=== PATIENT | male | born 1965 | race Caucasian/White ===

== ENCOUNTER 2016-12-02 23:15 | Emergency (ER) | payer OTHER ==
[2016-12-02 23:28] LABS: BASOPHIL# 0.1 X 10^3uL (0.0-0.1); BASOPHILS 0.7 % (0.0-2.0); EOSINOPHILS 2.6 % (0.0-6.0); EOSINOPHILS# 0.4 X 10^3uL (0.0-0.4); HEMATOCRIT 45.8 % (42.0-54.0); LYMPHOCYTES 42.2 % (20.0-40.0); LYMPHOCYTES# 6.8 X 10^3uL (0.8-3.8); MEAN CELL VOLUME 83.7 fL (80.0-100.0); MEAN CORPUS. HGB CONCENTRATION 34.9 g/dL (32.0-36.0); MEAN CORPUSCULAR HEMOGLOBIN 29.2 pg (29.0-35.0); MEAN PLATELET VOLUME 8.3 fL (7.4-10.4); MONOCYTES 9.5 % (2.0-10.0); MONOCYTES# 1.5 X 10^3uL (0.2-1.0); NEUTROPHILS# 7.4 X 10^3uL (2.6-6.7); PLATELET COUNT 489 X 10^3uL (130-440); RED BLOOD COUNT 5.47 X 10^6uL (4.20-6.10); RED CELL DISTRIBUTION WIDTH 12.6 % (11.5-14.5); WHITE BLOOD COUNT 16.2 X 10^3uL (3.9-10.7)
[2016-12-02 23:37] LABS: ALBUMIN 4.5 g/dL (3.5-5.0); ALKALINE PHOSPHATASE 67 U/L (38-126); ALT 39 U/L (21-72); AST 23 U/L (17-59); BILIRUBIN, DIRECT 0.1 mg/dL (0.0-0.4); BILIRUBIN, TOTAL 0.5 mg/dL (0.2-1.3); BLOOD UREA NITROGEN 19 mg/dL (9-20); CALCIUM 9.1 mg/dL (8.4-10.2); CHLORIDE 105 mmol/L (98-107); EST GLOMERULAR FILTRATION RATE > 60 mL/min; ETHYL ALCOHOL 282 mg/dL (<10); GLUCOSE 128 mg/dL (70-100); LIPASE 77 U/L (23-300); MAGNESIUM 2.5 mg/dL (1.6-2.3); POTASSIUM 3.7 mmol/L (3.5-5.1); SODIUM 148 mmol/L (137-145); TOTAL PROTEIN 7.8 g/dL (6.3-8.2)
--- NOTE | 2016-12-03 00:04 | CT REPORT ---
HISTORY: Fall, EtOH. COMPARISON: None. TECHNIQUE: Axial non-contrast images obtained from skull vertex through foramen magnum. Dose reduction technique was utilized. FINDINGS: There is no atrophy. There is no hemorrhage. There is no hydrocephalus. No mass lesion is identifi ed. Agee white differentiation adequate, there is no infarction. No midline shift is identified. T he paranasal sinuses are clear. There is a superficial soft tissue hematoma over the left parietal re gion near the vertex. IMPRESSION: 1. No CT evidence of acute intracranial abnormalities. 2. Superficial soft tissue hematoma over the left parietal region near the vertex. Final Electronic Signature: This report was electronically signed by Robert Kitchen MD on 7 12:02 AM. jannette /
--- NOTE | 2016-12-03 00:06 | CT REPORT ---
HISTORY: Fall, EtOH. COMPARISON: None. TECHNIQUE: This examination was performed using automated exposure control, adjustment of mA or kV according to patient size, and/or use of iterative reconstruction technique. Axial thin section images obtained f rom skull base through head of the clavicles. Sagittal and coronal reformat images obtained. FINDINGS: There is straightening of the normal cervical lordosis, possibly related to positioning/collar placem ent or muscle spasm. Otherwise, the vertebral bodies and articular facets are in normal anatomic alig nment. There is no fracture. There is no prevertebral soft tissue swelling. Mineralization is normal. Th ere is no gross soft tissue abnormality. There is no gross degenerative disc disease or facet arthro santiago. IMPRESSION: No CT evidence of acute cervical spine fracture or traumatic malalignment. Final Electronic Signature: This report was electronically signed by Robert Kitchen MD on 7 12:04 AM. jannette /
--- NOTE | 2016-12-03 04:46 | ER PHYSICIAN DOCUMENTATION ---
Physician Documentation [facility] Name:Jesus Manuel Foster Age:51 yrs Sex:Male :1965 Arrival Date:12/02/2016 Time:23:15 BedTrauma-B Private MD:Physician, No ED Frederic Collier Disposition: 12/03 04:56 Chart complete. tl1 Disposition: 12/03/16 04:35 Discharged to Home/Self Care. Impression: Alcohol (ETOH) Intoxication, Nondependent, Head Injury, Head Laceration. - Condition is Good. - Discharge Instructions: HEAD INJURY, No Wake-Up (Adult), LACERATION, Small/superficial, Not sutured, Abuse, Alcohol - ALCOHOL INTOXICATION. - Medical Reconciliation form form. - Follow up: Private Physician; When: 4- 6 days; Reason: Recheck today's complaints, Continuance of care. - Problem is new. - Symptoms have improved. HPI: 12/02 23:20 This 51 yrs old Male presents to ER via EMS with complaints of ETOH Abuse, tl1 Head Injury-Adult. 23:20 The patient or guardian reports a laceration, 3 cm(s), ragged. The complaints affect tl1 the left side of the back of head. Context of injury: The problem was sustained at a bar or nightclub, resulted from a fall, while walking, impacting a hard surface, hitting concrete. Onset: The symptom(s)/episode began/occurred suddenly, just prior to arrival. He had been at a [employer], drinking with friends. History is sketchy, second had from medics. He was unable to cooperate with the history on arrival. He apparenlty lost his footing and fell backwards, striking his head. He was somewhat unresponsive and medics were summoned. His transport here was unremarkable. . Historical: - Allergies: No known drug Allergies; - Home Meds: 1. None - Tetanus: unknown. - Ebola Screening: : No symptoms or risks identified at this time. . - Immunization history: Flu Vaccine unknown. - Social history: Smoking status: unknown if patient ever smoked tobacco. ROS: 12/03 04:43 Unable to obtain ROS due to patient being uncooperative, severe intoxication.. tl1 Exam: 04:44 Constitutional: The patient appears well developed, well hydrated, well groomed, well tl1 nourished, listless, smells of alcohol, ETOH. 04:44 Head/face: Exam is negative for mathur signs, Noted is hematoma, a laceration(s), 3 cm(s), of the left side of the back of head. 04:44 Eyes: Periorbital structures: appear normal, Pupils: equal, round, and reactive to light and accomodation, Sclera: icterus, is not appreciated. 04:44 ENT: Exam is negative for acute changes. 04:44 Neck: External neck: is normal, C-spine: vertebral tenderness, is not appreciated, ROM/movement: is normal. 04:44 Chest/axilla: Inspection: normal, Palpation: tenderness, is not appreciated. 04:44 Cardiovascular: Rate: normal, Rhythm: regular, Heart sounds: normal, Edema: is not appreciated. 04:44 Respiratory: the patient does not display signs of respiratory distress, Respirations: normal, Breath sounds: are normal. 04:44 Abdomen/GI: Inspection: abdomen appears normal, Palpation: abdomen is soft and non-tender. 04:44 Back: normal spinal alignment noted, vertebral tenderness, is not appreciated. 04:44 Skin: Exam negative for acute changes. 04:44 Neuro: Orientation: unable to test, Mentation: slow to respond, Cranial nerves: grossly normal, Motor: moves all fours, Gait: not tested. Vital Signs: 12/02 23:22 BP 110 / 73; Pulse 100; Resp 20; Temp 98(T); Pulse Ox 93% ; Weight 108.86 kg; Height 5 bw2 ft. 11 in. (180.34 cm); Pain 0/10; 12/03 04:33 BP 115 / 55; Pulse 101; Resp 18; Temp 98.8(T); Pulse Ox 97% ; Pain 0/10; bw2 12/02 23:22 Body Mass Index 33.47 (108.86 kg, 180.34 cm) bw2 [place] Coma Score: 02:00 Eye Response: spontaneous(4). Verbal Response: confused(4). Motor Response: obeys tl1 commands(6). Total: 14. MDM: 12/02 23:18 Patient medically screened. tl1 12/03 02:00 Differential diagnosis: Contusion of Hematoma on Laceration of Intracranial bleed- tl1 Concussion cerebral contusion. Data reviewed: vital signs, nurses notes, lab test result(s), CBC, electrolytes, hepatic panel, urinalysis, radiologic studies, CT scan, and as a result, I will discharge patient. Counseling: I had a detailed discussion with the patient and/or guardian regarding: the historical points, exam findings, and any diagnostic results supporting the discharge/admit diagnosis, lab results, radiology results, the need for outpatient follow up, to return to the emergency department if symptoms worsen or persist or if there are any questions or concerns that arise at home. ED course: He was quite intoxicated on arrival . He was observed for nearly 6 hours and became much more awake. At that time he declined sutures of his occipital laceration. His speech was clear, gait was steady and mentation was normal. His drove from [place] and was happy to take him home. . 12/02 23:30 Order name: CBC AUTO DIF, MDIF/RMOR IF IND; Complete Time: 00:10 EDMS 12/03 00:08 Interpretation: WHITE BLOOD COUNT 16.2; HEMOGLOBIN 16.0; HEMATOCRIT 45.8; PLATELET tl1 COUNT 489; NEUTROPHILS 45.0; LYMPHOCYTES 42.2. 12/02 23:42 Order name: BASIC METABOLIC PANEL; Complete Time: 00:10 EDMS 12/03 00:08 Interpretation: SODIUM 148; POTASSIUM 3.7; CHLORIDE 105; CARBON DIOXIDE 21; GLUCOSE tl1 128; BLOOD UREA NITROGEN 19; CREATININE 1.3; EST GLOMERULAR FILTRATION RATE > 60; CALCIUM 9.1. 12/02 23:42 Order name: MAGNESIUM; Complete Time: 00:10 EDMS 12/03 00:09 Interpretation: Abnormal: MAGNESIUM 2.5; Slightly high. tl1 12/02 23:42 Order name: HEPATIC PANEL; Complete Time: 00:10 EDMS 12/03 00:09 Interpretation: Normal. tl12/02 23:42 Order name: LIPASE; Complete Time: 00:10 12/03 00:09 Interpretation: Normal: LIPASE 77. tl1 12/02 23:42 Order name: ETHYL ALCOHOL; Complete Time: 00:10 EDMS 12/03 00:09 Interpretation: Abnormal: ETHYL ALCOHOL 282. tl1 12/03 00:06 Order name: CAT SCAN; HEAD W/O CON [id number] EDMS 12/03 00:07 Order name: CAT SCAN; CERVICAL [id number] EDMS 12/02 23:18 Order name: I & O; Complete Time: 23:19 rh 12/02 23:18 Order name: NPO; Complete Time: 23:19 rh 12/02 23:18 Order name: Pulse Ox Continuous; Complete Time: 23:19 rh Dispensed Medications: 12/02 23:20 Drug: Zofran 8 mg; Route: IVP; Infused Over: 2 mins; Site: right antecubital; 2 12/03 04:44 Follow up: Response: No adverse reaction bw2 Signatures: Frederic Sanchez MD MD tl1 Katlyn Kline Beth bw2
--- NOTE | 2016-12-03 04:46 | ER NURSING DOCUMENTATION ---
Nurse's Notes [facility] Name:Jesus Manuel Foster Age:51 yrs Sex:Male :1965 Arrival Date:12/02/2016 Time:23:15 BedTrauma-B Private MD:Physician, No Diagnosis:Alcohol (ETOH) Intoxication, Nondependent;Head Injury;Head Laceration Presentation: 12/02 23:18 Acuity: KAYE 2 rh 23:19 Presenting complaint: Patient states: pt fell and unknown LOC. pt is extremley bw2 intoxicated. pt is awakable with stimuli. pt is vomiting. pt is not alert or oriented. Transition of care: patient was not received from another setting of care. 23:19 Method Of Arrival: EMS: 400 bw2 Triage Assessment: 23:21 General: Appears uncomfortable, Behavior is agitated, anxious, restless, combative. bw2 Pain: Denies pain. Respiratory: Breath sounds are clear bilaterally. GI: Pt is actively vomiting undigested food. Historical: - Allergies: No known drug Allergies; - Home Meds: 1. None - Tetanus: unknown. - Ebola Screening: : No symptoms or risks identified at this time. . - Immunization history: Flu Vaccine unknown. - Social history: Smoking status: unknown if patient ever smoked tobacco. Screenin:51 Infectious Disease Risk None. Abuse screen: Denies threats or abuse. Nutritional bw2 screening: No deficits noted. Suicide Risk Assessment: Unable to obtain due to condition. Assessment: 23:51 See Triage Assessment done by same RN. bw2 12/03 02:07 Derm: Injury Description: Laceration sustained to occipital area. bw2 Vital Signs: 12/02 23:22 BP 110 / 73; Pulse 100; Resp 20; Temp 98(T); Pulse Ox 93% ; Weight 108.86 kg; Height 5 bw2 ft. 11 in. (180.34 cm); Pain 0/10; 12/03 04:33 BP 115 / 55; Pulse 101; Resp 18; Temp 98.8(T); Pulse Ox 97% ; Pain 0/10; bw2 12/02 23:22 Body Mass Index 33.47 (108.86 kg, 180.34 cm) bw2 [place] Coma Score: 02:00 Eye Response: spontaneous(4). Verbal Response: confused(4). Motor Response: obeys tl1 commands(6). Total: 14. ED Course: 12/02 23:17 Patient arrived in ED. em2 23:17 Physician, No is Private Physician. em2 23:18 Frederic Sanchez MD is Attending Physician. tl1 23:18 Triage completed. 23:19 Johanna Payne is Primary Nurse. bw2 23:52 Inserted peripheral IV: 18 gauge in right antecubital area and blood collected. bw2 23:52 Valuables Remains with patient Patient has correct armband on for positive bw2 identification. Placed in gown. Side rails up X2. traffic monitor specialist on. Pulse ox on. NIBP on. 23:58 RN escorted patient out of department to CT scan with oxygen, cardiac rehabilitation program director, another bw2 RN. 12/03 00:[address] dnn 00:02 Patient moved back from CT. dnn 00:13 Valuables pt did not arrive to ED with a wallet. . bw2 02:07 pt bedding cleaned. pt cleaned of all vomit. bw2 02:52 Family now at bedside. bw2 04:31 Wound care to laceration located on occipital area was cleaned with Hibiclens, bw2 Irrigation Normal Saline Patient tolerated well. 04:45 Wound care pt refused wayne for head wound. bw2 Administered Medications: 12/02 23:20 Drug: Zofran 8 mg; Route: IVP; Infused Over: 2 mins; Site: right antecubital; bw2 12/03 04:44 Follow up: Response: No adverse reaction bw2 Output: 03:11 Urine: 750ml (Voided); Total: 750ml. bw2 Outcome: 04:33 Discharged to home via wheelchair, with significant other. bw2 04:33 Condition: good 04:33 Discharge Assessment: Patient awake, alert and oriented x 3. No cognitive and/or functional deficits noted. Patient verbalized understanding of disposition instructions. 04:35 Discharge ordered by . tl1 04:44 Discharge instructions given to patient, significant other, Instructed on discharge bw2 instructions, follow up and referral plans. Demonstrated understanding of instructions. 04:45 Patient left the ED. bw2 Signatures: Cristóbal Reyes Meinking-reg, Narcisa-reg em2 Frederic Sanchez MD MD tl1 Katlyn Kline Johanna Payne bw2
== END 2016-12-03 04:46 | disposition home or self-care (01) ==
LOC: EDBD 23:15 → ER 23:15 → EEVIPCON 23:15 → ER 12-03 04:46
DX: F10.129 Alcohol abuse with intoxication, unspecified (principal); S01.00XA Unspecified open wound of scalp, initial encounter; W18.39XA Other fall on same level, initial encounter; Y92.59 Other trade areas as the place of occurrence of the external cause; Y93.01 Activity, walking, marching and hiking
CPT/HCPCS: 70450; 72125; 80048; 80076; 80320; 83690; 83735; 85025; 96374; 99285; A0425; A0429